=== PATIENT | female | born 1955 | race Caucasian/White ===

== ENCOUNTER 2018-10-30 08:07 | Day surgery (SDC) ==
[2018-10-30] MEDS ORDERED: LIDOCAINE 1% 20 ML MDV ID STA (08:21)
[2018-10-30 08:28] VITALS: TEMP 97.7
[2018-10-30] MEDS ORDERED: SUBLIMAZE ONE (10:10)
[2018-10-30] MEDS ORDERED: VERSED ONE (10:10)
[2018-10-30] MEDS ORDERED: DIPRIVAN 20 ML VIAL IVP ONE (10:10)
[2018-10-30 11:21] VITALS: BP 112/67
--- NOTE | 2018-10-31 08:37 | OP ---
PROCEDURE: COLONOSCOPY TO THE CECUM. ENDOSCOPIST: Gilberto LEE M.D. INDICATION: HISTORY OF POLYPS INSTRUMENT: [employer]-190. MEDICATION: PER ANESTHESIA. PROCEDURE: The patient was positioned for colonoscopy. The digital rectal exam was negative. The colonoscope was inserted through the anus and advanced to the cecum. The cecum was identified using the ileocecal valve and the appendiceal orifice as landmarks. The scope was slowly withdrawn through an adequately prepped colon. [place] Bowel Prep Score equal 9. The exam was normal throughout. Retroflex exam was otherwise normal. Withdraw time 8 minutes and 20 seconds. PLAN: 1. Suggest repeat colonoscopy for surveillance in 5 years CC: Dr. Domingo CENTENO
== END 2018-10-30 11:00 | disposition home or self-care (01) ==
LOC: SURG 08:07
PROVIDERS: ATTEND Internal Medicine Gastroenterology
DX: Z86.010 Personal history of colon polyps (principal)